=== PATIENT | female | born 1995 | race Hispanic/Latino ===

== ENCOUNTER → 2018-12-29 | Outpatient (CLI) | payer OTHER ==
[2018-12-29 20:30] LABS: HEMATOCRIT 31.8 % (36.0-47.0); MEAN CORPUSCULAR HEMOGLOBIN 32.2 pg (27.0-33.0); MEAN CORPUSCULAR HGB CONC 34.6 g/dl (32.0-36.5); PLATELET COUNT, AUTOMATED 241 10^3/uL (150-450); RED BLOOD COUNT 3.42 10^6/uL (4.00-5.40); WHITE BLOOD COUNT 9.7 10^3/uL (4.0-10.0)
== END ==
LOC: M LRY 16:21
PROVIDERS: ATTEND Obstetrics & Gynecology
DX: Z34.82 Encounter for supervision of other normal pregnancy, second trimester (principal); Z36.89 Encounter for other specified antenatal screening

== ENCOUNTER → 2019-02-24 | Outpatient (REF) | payer OTHER | LOC: M LAB REF 12:28 | PROVIDERS: ATTEND Nurse Practitioner Women's Health | DX: Z34.83 Encounter for supervision of other normal pregnancy, third trimester (principal); Z36.85 Encounter for antenatal screening for Streptococcus B ==

== ENCOUNTER → 2019-08-17 | Outpatient (CLI) | payer OTHER ==
[2019-08-17 20:16] LABS: BASO % 0.8 % (0.0-1.0); EOS # 0.7 10^3/uL (0.0-0.5); EOS % 12.4 % (0.0-3.0); HEMATOCRIT 37.8 % (36.0-47.0); HEMOGLOBIN 12.7 g/dl (12.0-15.5); LYMPH # 2.1 10^3/uL (1.5-5.0); LYMPH % 38.8 % (24.0-44.0); MEAN CORPUSCULAR HEMOGLOBIN 30.2 pg (27.0-33.0); MEAN CORPUSCULAR HGB CONC 33.6 g/dl (32.0-36.5); MEAN CORPUSCULAR VOLUME 89.8 fl (80.0-96.0); MONO # 0.4 10^3/uL (0.0-0.8); MONO % 8.1 % (0.0-5.0); NEUTROPHILS # 2.1 10^3/uL (1.5-8.5); NEUTROPHILS % 39.9 % (36.0-66.0); PLATELET COUNT, AUTOMATED 288 10^3/uL (150-450); RED BLOOD COUNT 4.21 10^6/uL (4.00-5.40); WHITE BLOOD COUNT 5.3 10^3/uL (4.0-10.0)
[2019-08-17 20:25] LABS: ALBUMIN 3.9 GM/DL (3.2-5.2); ALT/SGPT 20 U/L (12-78); BILIRUBIN,TOTAL 0.4 MG/DL (0.2-1.0); BLOOD UREA NITROGEN 21 MG/DL (7-18); CALCIUM LEVEL 8.5 MG/DL (8.5-10.1); CARBON DIOXIDE LEVEL 28 MEQ/L (21-32); CHLORIDE LEVEL 104 MEQ/L (98-107); CREATININE FOR GFR 0.79 MG/DL (0.55-1.30); FREE T4 0.97 NG/DL (0.76-1.46); GLOMERULAR FILTRATION RATE > 60.0 (>60); GLUCOSE, FASTING 91 MG/DL (70-100); POTASSIUM SERUM 3.6 MEQ/L (3.5-5.1); SODIUM LEVEL 141 MEQ/L (136-145); TOTAL PROTEIN 7.5 GM/DL (6.4-8.2)
== END ==
LOC: M LRY 16:32
PROVIDERS: ATTEND Physician Assistant
DX: R22.1 Localized swelling, mass and lump, neck (principal)

== ENCOUNTER → 2020-12-26 | Outpatient (CLI) | payer OTHER ==
[~2020-12-26] MED LIST: PROHANCE 279.3MG/ML 15ML VIAL As Ordered ONE
--- NOTE | 2020-12-26 19:07 | REPVR ---
PROCEDURE INFORMATION: Exam: MR Neck Without and With Contrast Exam date and time: 12/26/2020 5:57 PM Age: 25 years old Clinical indication: Mass, lump, or swelling; Other: Neck; Patient HX: Per PT, noticed 1 yr ago, seems to be getting bigger; Additional info: Firm mass RT parotid region TECHNIQUE: Imaging protocol: MR images of the neck without and with intravenous contrast. Contrast material: PROHANCE; Contrast volume: 11 ml; Contrast route: INTRAVENOUS (IV); COMPARISON: No relevant prior studies available. FINDINGS: Examination is motion limited. There is a lobular T1 hypointense and mildly T2 hyperintense mass at the right parotid gland measuring 1.8 cm AP by 1.9 cm transverse by 2.9 cm cc. Mass demonstrates enhancement. There is involvement of both the superficial and deep lobes of the right parotid. Normal left parotid gland. Submandibular glands appear within normal limits. No inflammatory change or fluid collection following the soft tissues of the neck. Thyroid gland appears within normal limits. No pathologically enlarged cervical lymph nodes. Major vascular flow voids of the neck are preserved. No gross abnormal cord signal or significant central canal compromise. IMPRESSION: Lobular enhancing mass involving the right parotid gland as above measuring 1.8 x 1.9 x 2.9 cm. Consider benign mixed tumor or Warthin's tumor, malignant process however is not excluded. Electronically signed by: Lionel Duffy On 12/26/2020 19:07:18 PM
== END ==
LOC: M RAD 17:49
PROVIDERS: ATTEND Family Medicine
DX: D48.1 Neoplasm of uncertain behavior of connective and other soft tissue (principal)
CPT/HCPCS: 70543; A9576

== ENCOUNTER → 2020-12-30 | Outpatient (REF) | payer OTHER | LOC: M LAB REF 11:01 | PROVIDERS: ATTEND Otolaryngology | DX: D11.0 Benign neoplasm of parotid gland (principal) ==

== ENCOUNTER → 2021-08-11 | Outpatient (CLI) | payer SELFPAY | LOC: M LABSMTC 11:41 | PROVIDERS: ATTEND Anesthesiology | DX: Z01.812 Encounter for preprocedural laboratory examination (principal); Z20.822 Contact with and (suspected) exposure to COVID-19 ==

== ENCOUNTER 2021-08-16 08:37 | Day surgery (SDC) | payer OTHER ==
[~2021-08-16] VITALS: Ht 154.9 cm; Wt 24.8 kg
[2021-08-16] MEDS ORDERED: LR 1,000 ML IV ONE (09:30)
[2021-08-16] MEDS ORDERED: ONDANSETRON 4MG/2ML VIAL As Ordered ONE ×2 (09:55→14:17)
[2021-08-16] MEDS ORDERED: ROCURONIUM BROMIDE 50 MG/5 ML VIAL As Ordered ONE (09:55)
[2021-08-16] MEDS ORDERED: LIDOCAINE 2% 100MG/5ML SDV (FOR ANES.) As Ordered ONE (09:55)
[2021-08-16] MEDS ORDERED: METOCLOPRAMIDE INJ 10MG/2ML VIAL (J2765 PER 1) As Ordered ONE (09:55)
[2021-08-16] MEDS ORDERED: dexameTHASONE 4 MG/ML 1ML VIAL (J1100 PER 1MG) As Ordered ONE (09:55)
[2021-08-16] MEDS ORDERED: propofoL 200 MG/20 ML VIAL As Ordered ONE (09:55)
[2021-08-16] MEDS ORDERED: fentaNYL 100 MCG/2 ML INJECTION (J3010) As Ordered ONE (09:55)
[2021-08-16] MEDS ORDERED: MIDAZOLAM INJ 2MG/2ML VIAL (J2250 PER 1MG) As Ordered ONE (09:55)
[2021-08-16] MEDS ORDERED: BACITRACIN OINTMENT 30GM TUBE As Ordered ONE (10:22)
[2021-08-16] MEDS ORDERED: LIDOCAINE W/EPINEPHRINE 1% 20ML VIAL As Ordered ONE (10:22)
[2021-08-16] MEDS ORDERED: ONDANSETRON 4MG/2ML VIAL IV PRN (14:40)
[2021-08-16] MEDS ORDERED: METOCLOPRAMIDE INJ 10MG/2ML VIAL (J2765 PER 1) IV PRN (14:40)
[2021-08-16] MEDS ORDERED: PERCOCET 5MG/325MG TAB PO PRN (14:40)
[2021-08-16] MEDS ORDERED: ACETAMINOPH W/CODEINE #3 TAB UD PO PRN (14:40)
[2021-08-16] MEDS ORDERED: LR 1,000 ML IV SCH ×2 (14:40)
[2021-08-16] MEDS ORDERED: fentaNYL 100 MCG/2 ML INJECTION (J3010) IV PRN (14:40)
--- NOTE | 2021-08-16 15:15 | RO ---
OPERATIVE NOTE DATE OF OPERATION: 08/16/2021 PREOPERATIVE DIAGNOSIS: Right parotid mass. POSTOPERATIVE DIAGNOSIS: Right parotid mass. OPERATIVE PROCEDURE: Right superficial parotidectomy. SURGEON: Casey Villarreal MD [employer]: ANESTHESIA: The facial nerve monitor was used during the procedure. The nerve was monitored and dissected out of the way. The nerve was tested at the end of the procedure and was intact. DESCRIPTION OF PROCEDURE: Under general anesthesia with the patient intubated, the patient draped in the usual manner. The incision was mapped out and marked with a pen and then I infiltrated with lidocaine 1/2%. I made an incision, dividing thin subcutaneous tissues. I dissected the tissues off of the parotid gland. I then dissected down between the external auditory canal and the parotid. I dissected inferiorly and the parotid from the sternocleidomastoid mastoid. I then joined those two dissections. I dissected them until I found the facial nerve. I then followed the branches first in the inferior branch which branched off the ramus mandibular and the cervical and I dissected that free. Then I found the buccal and dissected that free and followed that anteriorly, rotating the tumor parotid off of the nerve. Then superiorly I identified the frontal branch, followed that superiorly. Any vessels seen were cauterized with bipolar and then divided. I followed the frontal branch and then the ophthalmic branch and then I joined the superior, inferior dissection. The nerves were identified and manipulated out of the way. I finally identified the parotid duct and I clamped, divided and tied it off. The gland was delivered from the wound. I irrigated the area to make sure there was no bleeding. Any vessels between were cauterized with bipolar cautery. Once this was done then I put in a Calos-Rahman drain through a separate stab wound. I closed the wound with 4-0 Monocryl and 5-0 nylon. The drain was sutured in. The patient tolerated the procedure well. 25 mL estimated blood loss. The patient was extubated and then transferred to the recovery room in excellent condition.
[2021-08-16 16:30] VITALS: BP 108/60
[2021-08-16 17:00] VITALS: BP 106/59
[2021-08-16 17:30] VITALS: BP 106/60
[2021-08-16 18:00] VITALS: BP 102/59
[2021-08-16 22:00] VITALS: BP 103/58
[2021-08-17 02:00] VITALS: BP 102/55
[2021-08-17 06:00] VITALS: BP 100/56
[2021-08-17 10:00] VITALS: BP 100/57
== END 2021-08-17 10:40 | disposition home or self-care (01) ==
LOC: M SDC 08:37 → M MS5PR 16:10 → M SDC 08-17 10:40
PROVIDERS: ATTEND Otolaryngology
DX: D11.0 Benign neoplasm of parotid gland (principal)
CPT/HCPCS: 42410; 81025; 88307; J1100; J2250; J2405; J2765; J3010